=== PATIENT | female | born 1945 | race Caucasian/White ===

== ENCOUNTER → 2021-10-18 06:28 | Outpatient (CLI) | payer MEDICARE, OTHER, SELFPAY ==
--- NOTE | 2021-10-18 06:30 | NM_ITS ---
APPROVED REPORT Exam: Nuclear Stress Test Indication: chest pain..fatigue Patient Location: Outpatient Stress Tech: Graciela SALGUERO Tech:QAUILES Chilel RT(R)(N) Ht: 5 ft 6 in Wt: 118 lbs Bra Size: 34b HR: 68 bpm BP: 152/64 mmHg BSA: 1.60 m2 BMI: 19.0 History: chest pain..fatigue Procedure: Patient received a 0.4 mg of intravenous Lexiscan, resting heart rate 68 bpm, resting blood pressure 152/64 mmHg, with Lexiscan maximum heart rate achived was 98 bpm which is Less than 85 % of the maximum predicted heart rate and blood pressure was 152/64 mmHg. With Lexiscan, patient denied any complaint of chest pain. Electrocardiogram Resting electrocardiogram shows sinus rhythm, with Lexiscan there is less than 1.[address] segment depression noted from the baseline EKG. The EKG portion of the Lexiscan is nondiagnostic. Cardiac Stress and Resting SPECT Images: Cardiac Stress and Resting SPECT images were obtained using technetium 99m Myoview 30.4 mCi stress and 10.51 mCi at rest. Gated SPECT for analysis of segmental wall motion and calculation of the ejection fraction also done. Prone images were also obtained. Cardiac stress and rest SPECT images show uniform myocardial activity without segmental perfusion abnormality, computer derived ejection fraction is 60% with no regional wall motion abnormality, right ventricle is normal size and contractility. Conclusion: 1. The EKG portion of the Lexiscan Myoview is nondiagnostic. 2. No scintigraphic evidence of reversible ischemia seen, compared to ejection fraction 60% with no regional wall motion abnormality, right ventricle is normal size and contractility. 3. Normal Lexiscan Myoview study. Electronically signed by : Ravi Torres MD 10/19/2021 08:57:59
--- NOTE | 2021-10-18 06:30 | CA_ITS ---
APPROVED REPORT Exam: Pharmacologic Technologist: Graciela Burgos, Ht: 5 ft 6 in Wt: 118 lbs BSA: 1.60 m2 HR: 71 bpm BP: 152/64 mmHg Rhythm: NSR, normal Medical History Medical History: HTN Cardiac Risk Factors: HTN Stress Test Details Test: LEXISCAN HR Resting HR: 68 bpm Max Heart Rate (APMHR): 145.794595 bpm Max HR Achieved: 98 bpm Target HR (85% APMHR): 123.887668 bpm % of APMHR: 67.59 Recovery HR: 92 bpm BP Resting BP: 152/64 mmHg Max BP: 152/64 mmHg Recovery BP: 130.0/71.0 mmHg ECG Resting ECG: NSR, normal Clinical Exercise duration: 04:01 min Highest Stage Achieved: Exercise capacity: 1.0 METs Stress ECG Conclusion During lexiscan pt experinced SOA, brief nausea. No CP noted. No arrhythmias noted. NS ST-T changes. Unremarkable lexiscan stress. Myoview images reported separately. Electronically signed by : Ravi Torres MD 10/19/2021 08:53:58
--- NOTE | 2021-10-18 06:30 | CA_ITS ---
APPROVED REPORT EXAM: Comprehensive 2D, Doppler, and color-flow Echocardiogram Consulting Intern: Shira Maurice RT(R) Ht: 5 ft 6 in Wt: 118lbs BSA: 1.60 BP: 177/67 mmHg Indications: CP, ASCVD, hyperlipidemia 2D Dimensions LVOT 1.75 cm (M/F) 1.5-2.5 LVEF (Edmonds's) 60.20 % F: 54 - 74 LV Volume 74.90 mL F: 46 - 106 LV Volume Index 47.10 mL/m2 F: 29 - 61 LA Volume 25.20 mL LA Volume Index 15.84 mL/m2 (M/F) 16-34 M-Mode Dimensions RVDd 1.71 cm (0.9-2.6) LA Diam 2.16 cm (1.9-4.0) LVDd 4.00 cm (3.5-5.7) Ao Diam 2.33 cm (2.0-3.7) LVDs 3.33 cm (3.5-5.7) IVSd 0.41 cm (0.6-1.1) PWd 0.55 cm (0.6-1.1) EF (Teich) 35.60% FS 16.80% EDV (Teich) 70.00 mL ESV (Teich) 45.10 mL LV Diastology E Decel Time 207.00 (160-240 msec) E/A Ratio 0.7 MED E' 9.40 (< 7 cm/sec) E'/MED E' Ratio 10.29 (>14) LAT E' 7.00 (<10 cm/sec) E/LAT E' Ratio 13.81 (>14) Mitral Valve MV E Max Glenn. 97.00 (40-130 cm/s) MV A Velocity 136.00 (40-130 cm/s) E/A Ratio 0.71 MV Decel. Time 207.00 (160-240 ms) MV PHT 61.00 ms Tricuspid Valve TR P. Velocity 263.00 cm/s RAP Estimate 10.00 mmHg RVSP 37.60 mmHg Left Ventricle Left atrium is mildly enlarged, left ventricle is normal size, mild qualitative concentric left ventricular hypertrophy, estimated ejection fraction 55% with no regional wall motion abnormality, grade 1 diastolic dysfunction seen without tissue Doppler evidence of raise left atrial pressure. Right Ventricle Right atrium and right ventricle are normal size and contractility. Aortic Valve Aortic valve is minimally thickened and fibrosed there is no aortic stenosis or aortic insufficiency. Mitral Valve Mitral valve has mitral calcification, leaflets are minimally thickened, there is no mitral stenosis, there is mild mitral regurgitation. Tricuspid Valve Tricuspid grossly normal, there is mild tricuspid regurgitation, calculated right ventricular systolic pressure 37 mmHg. Pulmonic Valve Pulmonic valve is poorly visualized. Great Vessels Aortic root is normal size. Inferior vena cava is normal size with normal inspiratory collapse. Pericardium No significant pericardial effusion noted. Conclusion 1. Mildly enlarged left atrium, normal left ventricular size, mild concentric left ventricular hypertrophy, estimated ejection fraction 55% with no regional wall motion abnormality, grade 1 diastolic dysfunction seen without tissue Doppler evidence of raise left atrial pressure. 2. Mild mitral and tricuspid regurgitation, calculated right ventricular systolic pressure is 37 mmHg. 3. No significant pericardial effusion noted. 4. Inferior vena cava is normal size with normal inspiratory collapse. Electronically signed by : Ravi Torres MD 10/19/2021 11:23:30
== END ==
PROVIDERS: PCP Family Medicine; Visit Provider Internal Medicine
DX: E78.5 Hyperlipidemia, unspecified (principal); I25.10 Atherosclerotic heart disease of native coronary artery without angina pectoris; R07.89 Other chest pain
CPT/HCPCS: 78452; 93017; 93306; A9502; J2785

== ENCOUNTER 2023-11-19 14:28 | Outpatient (CLI) | payer MEDICARE, OTHER, SELFPAY ==
[2023-11-19 14:57] LABS: Basophils # 0.1 K/mm3 (0-0.2); Basophils % 0.5 % (0.1-2.0); Eosinophils # 0.1 K/mm3 (0.0-0.4); Eosinophils % 0.7 % (0.1-12.0); Hematocrit 37.4 % (37.0-47.0); Lymphocytes # 2.7 K/mm3 (0.7-4.5); Lymphocytes % 21.5 % (10-50); Mean Corpuscular HGB Conc 32.1 g/dL (31.8-35.4); Mean Corpuscular Hemoglobin 25.1 pg (27.0-31.2); Mean Corpuscular Volume 78.4 fl (81-99); Mean Platelet Volume 7.8 fl (7.4-10.4); Monocytes # 1.4 K/mm3 (0.1-1.0); Monocytes % 11.4 % (1.7-9.3); Neutrophils # 8.2 K/mm3 (1.8-7.8); Neutrophils % 65.9 % (37.0-80.0); Platelet Count 241 K/mm3 (142-424); Red Blood Count 4.77 M/mm3 (4.20-5.40); White Blood Count 12.4 K/mm3 (4.8-10.8)
[2023-11-19 16:36] LABS: Hemoglobin A1C 7.4 % (4.0-6.0)
[2023-11-19 16:38] LABS: Chloride 102 mmol/L (98-107)
[2023-11-19 16:39] LABS: Sodium 134 mmol/L (136-145)
[2023-11-19 16:40] LABS: Potassium 4.4 mmoL/L (3.5-5.1)
[2023-11-19 16:42] LABS: Alanine Aminotransferase 15 U/L (12-78); Albumin Level 4.3 g/dl (3.5-5.0); Alkaline Phosphatase 79 U/L (38-126); Anion Gap 9.4 mEq/L (5-15); Aspartate Amino Transferase 25 U/L (14-36); Bilirubin,Direct 0.2 mg/dl (0.0-0.4); Bilirubin,Indirect 0.2 mg/dL (0.0-0.9); Bilirubin,Total 0.4 mg/dl (0.2-1.3); Bilirubin,Unconjugated 0.1 mg/dL (0.0-1.1); Blood Urea Nitrogen 12 mg/dl (7-17); Calcium 9.5 mg/dl (8.4-10.2); Carbon Dioxide 27 mmol/L (22.0-30.0); Cholesterol 204 mg/dl (140-200); Estimated Glomerular Filt Rate 81 ml/min (>60); GFR (African American) 98 ML/MIN (>60); Glucose 114 mg/dl (74-100); Total Protein,Serum 7.8 g/dl (6.3-8.2); Triglycerides 164 mg/dl (30-150); VLDL Cholesterol 33 mg/dL (0-40)
[2023-11-19 16:43] LABS: HDL Cholesterol 41 mg/dl (40-60); Magnesium 1.9 mg/dl (1.6-2.3)
[2023-11-19 16:57] LABS: Direct LDL Cholesterol 115.98 mg/dL (100-129)
[2023-11-19 17:02] LABS: Free T4 (Free Thyroxine) 0.84 ng/dl (0.78-2.19)
[2023-11-19 17:19] LABS: Thyroid Stimulating Hormone 2.71 uIU/mL (0.465-4.68)
== END 2023-11-19 23:59 | disposition home or self-care (01) ==
PROVIDERS: PCP Nurse Practitioner Family; Visit Provider Nurse Practitioner
DX: I51.89 Other ill-defined heart diseases (principal); I10 Essential (primary) hypertension; I25.10 Atherosclerotic heart disease of native coronary artery without angina pectoris; R07.89 Other chest pain; E78.5 Hyperlipidemia, unspecified; R06.00 Dyspnea, unspecified; R73.09 Other abnormal glucose
CPT/HCPCS: 36415; 80048; 80061; 80076; 83036; 83735; 84439; 84443; 85025

== ENCOUNTER 2023-12-08 10:02 | Outpatient (CLI) | payer MEDICARE, OTHER, SELFPAY ==
--- NOTE | 2023-12-08 10:05 | CA_ITS ---
APPROVED REPORT Exam: Pharmacologic Technologist: Jyoti Dickson, Ht: 5 ft 6 in Wt: 107 lbs BSA: 1.53 m2 HR: 68 bpm BP: 165/72 mmHg Rhythm: NSR Medical History Medications: Nitroglycerin,,,,, Stress Test Details Test: LEXISCAN Reason for pharmacologic stress test: physical limitation. HR Resting HR: 70 bpm Max Heart Rate (APMHR): 143 bpm Max HR Achieved: 98 bpm Target HR (85% APMHR): 122 bpm % of APMHR: 69 Recovery HR: 85 bpm BP Resting BP: 165.0/72.0 mmHg Max BP: 182.0/88.0 mmHg Recovery BP: 175.0/86.0 mmHg ECG Resting ECG: NSR Stress ECG: No significant ST changes Arrhythmia: None Clinical Exercise duration: 04:03 min Highest Stage Achieved: Stress ECG Conclusion Symptoms: No chest pain Arrhythmias/Ectopy: None ST-T Changes: No significant ST changes Conclusion: Unremarkable Lexiscan stress. Myoview images are reported separately. Test Summary REST . . . . . . . Resting REST 03:47 . . 70 . 165/ 72 . . Stage 1 01:00 . . 92 . . . . Stage 2 01:00 . . 97 . 175/ 87 . . Stage 3 01:00 . . 91 . 182/ 88 . . Stage 4 01:00 . . 88 . 173/ 90 . . Stage 4 01:03 . . 87 . 173/ 90 . Stop exercise at 04:03 RECOVERY 01:00 . . 83 . . . . RECOVERY 01:40 . . 85 . 175/ 86 . . Electronically signed by : Rosana Ruelas MD 12/09/2023 13:39:36
--- NOTE | 2023-12-08 10:05 | CA_ITS ---
APPROVED REPORT EXAM: Comprehensive 2D, Doppler, and color-flow Echocardiogram Home Visit Field Care Manager: Claudia Amin CRT Ht: 5 ft 6 in Wt: 107lbs BSA: 1.53 BP: 153/70 mmHg Indications: Chest Pain, Shortness of Breath, Dyspnea, Hyperlipidemia, Hypertension/HDD 2D Dimensions LA Volume 26.70 mL LA Volume Index 17.00 mL/m2 (M/F) 16-34 M-Mode Dimensions RVDd 2.38 cm (0.9-2.6) LA Diam 3.29 cm (1.9-4.0) LVDd 4.62 cm (3.5-5.7) LVDs 3.20 cm (3.5-5.7) IVSd 0.93 cm (0.6-1.1) PWd 0.67 cm (0.6-1.1) EF (Teich) 58.30% FS 30.70% EDV (Teich) 98.30 mL TAPSE 1.41 (<1.7) ESV (Teich) 41.00 mL LV Diastology E Decel Time 250 (160-240 msec) E/A Ratio 0.64 MED A' 10.20 cm/s LAT A' 10.00 cm/s Aortic Valve AI PHT 508.00 ms AO Peak GR. 6.60 mmHg Mitral Valve MV E Max Glenn. 66.0 (40-130 cm/s) MV A Velocity 104.0 (40-130 cm/s) E/A Ratio 0.64 MV PHT 73.0 ms Pulmonary Valve PV Peak Velocity 60.0 (50-150 cm/s) Tricuspid Valve TR P. Velocity 239.00 cm/s RAP Estimate 10.00 mmHg RVSP 32.90 mmHg Left Ventricle The left ventricle is normal size. The left ventricular systolic function is normal. The left ventricular ejection fraction is within the normal range. There is increased LV wall thickness. There is normal LV segmental wall motion. Transmitral Doppler flow pattern suggests impaired LV relaxation. LVEF is 55%. Right Ventricle The right ventricle is normal size. The right ventricular systolic function is normal. Atria Left atrium is mildly dilated. Right atrium is mildly dilated. There is no Doppler evidence of interatrial shunt. Aortic Valve The aortic valve is mildly thickened. There is no aortic valvular stenosis. Mild aortic regurgitation. Mitral Valve The mitral valve is normal in structure. No evidence of mitral valve stenosis. Mild mitral regurgitation. Tricuspid Valve The tricuspid valve leaflets are thin and pliable. Mild tricuspid regurgitation. RVSP is 20-25 mmHg. Pulmonic Valve The pulmonary valve is normal in structure. Trace pulmonic regurgitation. Great Vessels The aortic root is normal in size. The ascending aorta is normal in size. IVC is normal in size and collapses >50% with inspiration. Pericardium There is no pericardial effusion. Other Information Study Quality: Fair Conclusion Normal biventricular systolic function. Mild biatrial dilation. Mild AI, mild MR, mild TR. Electronically signed by : Rosana Ruelas MD 12/10/2023 10:16:00
--- NOTE | 2023-12-08 10:58 | NM_ITS ---
APPROVED REPORT Exam: Nuclear Stress Test Indication: Chest pain, SOB, HTN, DM Patient Location: Outpatient Stress Tech: Jyoti Cage [place] Tech:Marcela Galarza, ARRT, RT (R)(N) Ht: 5 ft 6 in Wt: 107 lbs Bra Size: 34B HR: 70 bpm BP: 165/72 mmHg BSA: 1.53 m2 Rhythm: NSR TID: 0.99 BMI: 17.2 History: Chest pain, SOB, HTN, DM Procedure: Patient received 0.4 mg of intravenous Lexiscan, resting heart rate 70 bpm, resting blood pressure 165/72 mmHg, with Lexiscan maximum heart rate achieved was 98 bpm which is % of the maximum predicted heart rate and blood pressure was 182/88 mmHg. With Lexiscan, patient denied any complaint of chest pain. Cardiac Stress and Resting SPECT Images: Cardiac Stress and Resting SPECT images were obtained using technetium 99m Myoview 32.8 mCi stress and 10.63 mCi at rest. Resting and stress imaging in supine and prone positions demonstrate no evidence of fixed or reversible perfusion defects. Gated imaging demonstrates normal global and regional LV systolic function. LVEF is calculated at 55%. Conclusion: No evidence of fixed or reversible perfusion defects. Gated imaging demonstrates normal global and regional LV systolic function. LVEF is calculated at 55%. Electronically signed by : Rosana Ruelas MD 12/09/2023 14:34:38
[2023-12-08] MEDS: REGADENOSON 0.4MG/5ML SYRINGE 0.400000000000000022 MG IV (13:11)
[2023-12-08] MEDS: ISOTOPE MYOVIEW (PER STUDY) 1 DOSE IV (13:11)
[2023-12-08] MEDS: SODIUM CHLORIDE 0.9% 10ML SYR (RAD ONLY) 10 ML IV ×2 (13:11)
== END 2023-12-08 23:59 | disposition home or self-care (01) ==
LOC: RT 10:05
PROVIDERS: PCP Nurse Practitioner Family; Visit Provider Nurse Practitioner
DX: I51.89 Other ill-defined heart diseases (principal); I10 Essential (primary) hypertension; I25.10 Atherosclerotic heart disease of native coronary artery without angina pectoris; R07.89 Other chest pain; E78.5 Hyperlipidemia, unspecified; R06.00 Dyspnea, unspecified
CPT/HCPCS: 78452; 93017; 93018; 93306; A9502; J2785